=== PATIENT | female | born 1975 | race Caucasian/White ===

== ENCOUNTER 2017-04-25 19:03 | Emergency (ER) | payer BC ==
[~2017-04-25] VITALS: Ht 162.6 cm; Wt 53.1 kg
[2017-04-25] MEDS ORDERED: OMEPRAZOLE20 MG PO (19:20)
[2017-04-25] MEDS ORDERED: ZANTAC 150MG T150 MG PO (19:20)
[2017-04-25] MEDS ORDERED: XANAX1 MG PO (19:21)
[2017-04-25] MEDS ORDERED: NAPROSYN500 MG PO (19:29)
[2017-04-25] MEDS ORDERED: ROBAXIN500 MG PO (19:29)
[2017-04-25] MEDS ORDERED: MEDROLDOSEPACK PO (19:29)
[2017-04-25 19:42] VITALS: BP 124/66
== END 2017-04-25 19:43 | disposition home or self-care (01) ==
LOC: M.ERS 19:03
DX: M54.31 Sciatica, right side (principal); K21.9 Gastro-esophageal reflux disease without esophagitis

== ENCOUNTER → 2017-05-07 | Outpatient (CLI) | payer OTHER ==
[~2017-05-07] MED LIST: MEDROLDOSEPACK PO; NAPROSYN500 MG PO; OMEPRAZOLE20 MG PO; ROBAXIN500 MG PO; XANAX1 MG PO; ZANTAC 150MG T150 MG PO
== END ==
LOC: M.MRI 16:44
DX: M47.26 Other spondylosis with radiculopathy, lumbar region (principal); R10.31 Right lower quadrant pain

== ENCOUNTER → 2017-05-18 | Outpatient (CLI) | payer OTHER | LOC: M.MRI 05-07 17:01 | DX: N83.202 Unspecified ovarian cyst, left side (principal); M54.41 Lumbago with sciatica, right side; M25.551 Pain in right hip ==

== ENCOUNTER → 2018-02-11 | Outpatient (CLI) | payer OTHER | END | disposition home or self-care (01) | LOC: M.RAD 01-21 13:00 → M.MRI 01-21 14:30 → M.RAD 12:21 | DX: S73.191A Other sprain of right hip, initial encounter (principal); X58.XXXA Exposure to other specified factors, initial encounter; Y93.89 Activity, other specified; Y92.89 Other specified places as the place of occurrence of the external cause; Y99.8 Other external cause status; Z79.899 Other long term (current) drug therapy ==

== ENCOUNTER 2018-08-15 12:44 | Emergency (ER) | payer BC ==
[~2018-08-15] VITALS: Ht 162.6 cm; Wt 52.6 kg
[2018-08-15] MEDS ORDERED: RESTORIL15 MG PO (13:25)
[2018-08-15 13:30] LABS: ABSOLUTE BASOPHILS 0.1 thou/uL (0.0-0.2); ABSOLUTE EOSINOPHILS 0.1 thou/uL (0.0-0.7); ABSOLUTE MONOCYTES 0.5 thou/uL (0.0-1.2); ABSOLUTE NEUTROPHILS 4.6 thou/uL (1.6-8.1); BASOPHILS 1.1 %; EOSINOPHILS 0.8 %; HEMATOCRIT 43.1 % (37.0-47.0); HEMOGLOBIN 14.8 gm/dL (12.0-15.0); LYMPHOCYTES 26.9 %; MCH 31.1 pg (26.0-34.0); MCHC 34.2 g/dL (28.0-37.0); MONOCYTES 7.5 %; MPV 8.7 fl. (7.2-11.1); NUCLEATED RBCS 0 /100WBC; PLATELET COUNT* 335 thou/uL (150-400); POLYS 63.7 %; RBC 4.74 mil/uL (4.20-5.00); RDW-CV 12.7 % (10.5-14.5); WBC 7.3 thou/uL (4.0-11.0)
[2018-08-15 13:42] LABS: PROTIME 10.2 Seconds (9.20-11.50)
[2018-08-15 13:45] LABS: ANION GAP 13 mmol/L (7-16); BUN 7 mg/dL (7-18); CALCIUM 9.2 mg/dL (8.5-10.1); CHLORIDE 104 mmol/L (98-107); CO2 24 mmol/L (21-32); CREATININE 0.9 mg/dL (0.6-1.3); GLUCOSE 108 mg/dL (70-99); POTASSIUM 3.6 mmol/L (3.5-5.1); SODIUM 141 mmol/L (136-145)
[2018-08-15 13:58] LABS: ALBUMIN 4.4 g/dL (3.4-5.0); ALKALINE PHOSPHATASE 59 U/L (46-116); SGOT 15 U/L (15-37); SGPT 26 U/L (30-65); TOTAL BILIRUBIN 0.6 mg/dL (<0.1-1.0); TOTAL PROTEIN 8.2 g/dL (6.4-8.2); TROPONIN-I LEVEL <0.06 ng/mL (<0.06)
[2018-08-15 14:14] LABS: URINE BILIRUBIN NEGATIVE (Negative); URINE BLOOD 3+ (Negative); URINE CLARITY CLEAR; URINE COLOR YELLOW; URINE GLUCOSE-RANDOM NEGATIVE (Negative); URINE KETONES NEGATIVE (Negative); URINE LEUKOCYTES-REFLEX NEGATIVE (Negative); URINE NITRITE-REFLEX NEGATIVE (Negative); URINE PROTEIN NEGATIVE (Negative); URINE SPECIFIC GRAVITY <= 1.005 (1.005-1.030); URINE UROBILINOGEN 0.2 E.U./dl (0.2-1.0)
[2018-08-15 14:27] VITALS: BP 122/67
--- NOTE | 2018-08-15 14:32 | EKG ---
[place] [address] ELECTROCARDIOGRAM REPORT Name: MANDY PLASENCIA Room: [facility]#: [id number] Admission: 08/15/18 Attend Phys: Discharge: 08/15/18 Date of : 77 Report #: [id number] THIS REPORT FOR: //name// [facility] ED Test Date: 2018-08-15 Test Time: 12:44:14 Pat Name: MANDY PLASENCIA Department: Room: Gender: F Outbound Sales Specialist: : 1975 Requested By: Chitra Will Order Number: [id number] MD: Payam Coulter Measurements Intervals [place] Rate: 117 P: 74 UT: 163 QRS: 6 QRSD: 106 T: 24 QT: 315 QTc: 440 Interpretive Statements Sinus tachycardia Probable left atrial enlargement RSR' in V1 or V2, right VCD or RVH No previous ECG available for comparison Electronically Signed On 08-15-2018 14:31:51 CDT by Payam Coulter [email or web address] <ELECTRONICALLY SIGNED> By: Payam Coulter MD, [facility] 08/15/18 1431 1244 1244 Payam Coulter MD, FACC /EPI
[2018-08-15 14:34] LABS: SQUAMOUS 4-10 Moderate /LPF (0-3)
[2018-08-15 14:35] LABS: BACTERIA-REFLEX 1-9 Few /HPF (None Seen); CASTS None Seen /LPF (None Seen); CRYSTALS None Seen /LPF (None Seen); MUCUS None Seen strn/LPF (None Seen); URINE RBC 0-2 Rare /HPF (0-2); URINE WBC-REFLEX 0-5 Rare /HPF (0-5)
== END 2018-08-15 14:27 | disposition home or self-care (01) ==
LOC: M.ERS 12:44
PROVIDERS: Personal Emergency Response Attendant
DX: R42 Dizziness and giddiness (principal); R00.0 Tachycardia, unspecified; K21.9 Gastro-esophageal reflux disease without esophagitis; Z98.890 Other specified postprocedural states

== ENCOUNTER → 2018-09-18 | Outpatient (CLI) | payer BC ==
[~2018-09-18] MED LIST changes: +RESTORIL15 MG PO
--- NOTE | 2018-09-18 17:04 | EXE ---
[place] [address] STRESS ECHOCARDIOGRAM Name: MANDY PLASENCIA Room: [facility]#: [id number] Admission: 09/18/18 Attend Phys: Usama Prashanth, Discharge: Date of : 77 Date of Service: 09/18/18 1704 Report #: [id number] THIS REPORT FOR: //name// APPROVED REPORT Study performed: 09/18/2018 15:13:57 Exam: Stress Echocardiogram Indication: Palpitations Patient Location: Out-Patient Stress Nurse: Sofy Lowry RN Supervising Physician: Payam Coulter MD Ht: 5 ft 4 in HR: 69 bpm BP: 121/82 mmHg Procedure The patient underwent an Exercise Stress Test using the Damir Protocol. Blood pressure, heart rate, and EKG were monitored. An Echocardiogram was performed by prosthetics lab technician in four stages in quad fashion. At peak stress, four selected images were obtained and placed side by side with resting images for comparison. Stress Test Details Stress Test: Exercise stress testing was performed using a Damir protocol. HR Resting HR: 69 bpm Max Heart Rate (APMHR): 179 bpm Max HR Achieved: 194 bpm Target HR (85% APMHR): 152 bpm % of APMHR: 108 Recovery HR: 97 bpm HR response to stress: Normal HR response to stress BP Resting BP: 121/82 mmHg Max BP: 167/90 mmHg Recovery BP: 103/71 mmHg BP response to stress: Normal blood pressure response to stress. ECG Resting ECG: Sinus Rhythm Stress ECG: Sinus Tachycardia ST Change: Normal Maximum ST Deviation: 0 mm Arrhythmia: None [address] [address] STRESS ECHOCARDIOGRAM Name: MANDY PLASENCIA Room: [facility]#: [id number] Admission: 09/18/18 Attend Phys: Usama Alford, Discharge: Date of : 77 Date of Service: 09/18/18 1704 Report #: [id number] Recovery ECG: Sinus Rhythm Recovery ST Change: Normal Recovery ST Deviation: 0 mm Recovery Arrhythmia: None Clinical Reason for Termination: Completed protocol Exercise duration: 13 min 05 sec Highest Stage Achieved: Stage 5: 5.0 mph at 18% grade. Exercise capacity: 14.21 METs Pre-Stress Echo The resting Echocardiogram showed normal left ventricular contractility with an estimated Ejection Fraction of about 55-60%. Post-Stress Echo The stress Echocardiogram showed normal left ventricular contractility with an estimated Ejection Fraction of about 65-70%. Compared to rest, there were no stress-induced wall motion abnormalities. Conclusion Clinical Response: Non-ischemic Exercise Capacity: Superior Stress ECG Response: Non-ischemic Stress Echo Images: Non-ischemic low risk stress echo for predicting future cardiac events Other Information Study Quality: Excellent <Conclusion> low risk stress echo for predicting future cardiac events <ELECTRONICALLY SIGNED> By: Payam Coulter MD, [facility] 09/18/181703 03 03 Payam Coulter MD, [facility] /INF
== END ==
LOC: M.CRD 14:43
DX: I47.1 Supraventricular tachycardia (principal); R55 Syncope and collapse; R42 Dizziness and giddiness

== ENCOUNTER 2019-02-17 11:24 | Emergency (ER) | payer BC ==
[~2019-02-17] VITALS: Ht 162.6 cm; Wt 52.2 kg
[2019-02-17 11:57] LABS: INFLUENZA A ANTIGEN Negative (Negative); INFLUENZA B ANTIGEN Negative (Negative)
[2019-02-17] MEDS ORDERED: TAMIFLU75 MG PO (13:32)
[2019-02-17] MEDS ORDERED: ZOFRAN ODT4 MG PO (13:32)
[2019-02-17] MEDS ORDERED: REGLAN 10 MG TA10 MG PO (13:32)
[2019-02-17 13:40] VITALS: BP 107/49
== END 2019-02-17 13:41 | disposition home or self-care (01) ==
LOC: M.ERS 11:24
PROVIDERS: Personal Emergency Response Attendant
DX: B34.9 Viral infection, unspecified (principal); K21.9 Gastro-esophageal reflux disease without esophagitis; Z98.890 Other specified postprocedural states

== ENCOUNTER → 2019-06-14 | Outpatient (CLI) | payer BC ==
[~2019-06-14] MED LIST changes: +REGLAN 10 MG TA10 MG PO; +TAMIFLU75 MG PO; +ZOFRAN ODT4 MG PO
== END ==
LOC: M.LAB 10:05
DX: Z11.59 Encounter for screening for other viral diseases (principal); Z20.828 Contact with and (suspected) exposure to other viral communicable diseases

== ENCOUNTER → 2020-06-29 | Outpatient (CLI) | payer OTHER, BC | LOC: M.RAD 08:56 | PROVIDERS: ATTEND Internal Medicine | DX: Z12.31 Encounter for screening mammogram for malignant neoplasm of breast (principal) ==

== ENCOUNTER → 2020-07-06 | Outpatient (CLI) | payer OTHER | LOC: M.ULTRA 09:00 | PROVIDERS: ATTEND Internal Medicine | DX: R92.2 Inconclusive mammogram (principal); N63.20 Unspecified lump in the left breast, unspecified quadrant ==

== ENCOUNTER → 2020-08-02 | Outpatient (CLI) | payer OTHER | LOC: M.MRI 11:23 | PROVIDERS: ATTEND Internal Medicine | DX: N64.89 Other specified disorders of breast (principal); Z80.3 Family history of malignant neoplasm of breast ==

== ENCOUNTER → 2020-08-18 | Outpatient (CLI) | payer OTHER | END | disposition home or self-care (01) | LOC: M.LAB 14:25 | PROVIDERS: ATTEND Internal Medicine Gastroenterology | DX: Z01.812 Encounter for preprocedural laboratory examination (principal); K58.9 Irritable bowel syndrome, unspecified; R13.10 Dysphagia, unspecified; K21.9 Gastro-esophageal reflux disease without esophagitis; Z20.822 Contact with and (suspected) exposure to COVID-19 ==